=== PATIENT | female | born 1955 | race Caucasian/White ===

== ENCOUNTER 2021-11-26 08:21 | Outpatient (CLI) | payer MEDICARE, SELFPAY ==
--- NOTE | 2021-11-26 15:13 | WPDPFTINT ---
PFT Procedure Performed PFT Procedure Performed Spirometry with Pre/Post Bronchodilator Plethysmography (Lung Vol) Diffusing Cap (DLCO) Flow Vol Loop PFT Interpretation This is a pulmonary function test with pre and post-bronchodilator spirometry, plethysmography and diffusing capacity. The test was performed and results interpreted in accordance with the 2019 and 2005 ATS/ERS Task Force guidelines respectively using the Global Lung Function Initiative-2012 reference equations. Patient demonstrated good effort and cooperation. Reproducibility criteria were met. The quality of the pre bronchodilator spirometry maneuver was Grade A and post bronchodilator spirometry maneuver was Grade A. Findings: Spirometry: There is decreased maximal expiratory airflow at low lung volumes with concave expiratory flow tracing. The pre bronchodilator FVC is 1.80 L, 57% predicted. The pre bronchodilator FEV1 is 1.26 L, 52% predicted. The pre bronchodilator FEV1: FVC ratio 70%. The post bronchodilator FVC is 1.82 L, representing 1% increase. The post bronchodilator FEV1 is 1.40 L, representing an 11% increase. The post bronchodilator FEV1: FVC ratio 77%. Plethysmography: The total lung capacity is 3.90 L, 73% predicted. The functional residual capacity is 2.20 L, 72% predicted. The residual volume is 2.08 L, 92% predicted. Diffusing capacity: The diffusion capacity unadjusted for hemoglobin and carboxyhemoglobin is 14.1, 65% predicted. The diffusing capacity adjusted for alveolar volume is 4.70, 111% predicted. In comparison to previous pulmonary function test on 02/01/2015 the post bronchodilator FVC has decreased from 2.28 L to 1.82 L. The post bronchodilator FEV1 has decreased from 1.80 L to 1.40 L. The total lung capacity is unchanged from 3.88 L to 3.90 L. The functional residual capacity is unchanged from 2.24 L to 2.20 L. The residual volume is increased from 1.64 L to 2.08 L. The diffusing capacity unadjusted for hemoglobin and carboxyhemoglobin is decreased from 17.5 to 14.1. Diffusing capacity adjusted for alveolar volume is unchanged from 4.84 to 4.70. Impression: There is a combined obstructive and restrictive ventilatory abnormality. There are no guidelines to assign the severity of obstruction and restriction with a combined abnormality. In my opinion, given the moderately concave expiratory flow tracing and mildly decreased FEV1: FVC ratio and mild restrictive abnormality I would state there is a moderate obstructive abnormality and a mild restrictive abnormality resulting in a moderately severe decreased in the FEV1. There is no significant improvement after inhaling a single dose of albuterol. The diffusing capacity unadjusted for hemoglobin and carboxyhemoglobin is mildly decreased and normalizes when adjusted for alveolar volume. In comparison to previous pulmonary function test on 02/01/2015 there has been a greater than anticipated time dependent decrease in FVC, FEV1, diffusing capacity unadjusted for hemoglobin and carboxyhemoglobin with a greater than anticipated time dependent increase in the residual volume and no change in the total lung capacity, functional residual capacity or diffusing capacity adjusted for alveolar volume. Clinical correlation is recommended.
--- NOTE | 2021-11-26 15:20 | WPDSIXMINUTE ---
Six Minute Walk Procedure Procedure Performed Pulmonary Stress Test (6 min walk) Six Minute Walk Six Minute Walk: This is a 6 minute walk test. The test was performed and interpreted in accordance with the 2014 ERS/ATS task force guidelines. Findings: The patient's resting room air oxygen saturation measured by pulse oximetry was 94% and heart rate was 94 bpm. Patient ambulated for 244 meters and oxygen saturation remained 91 to 95%. Heart rate at the end of the study was 111 bpm. The patient did not qualify for supplemental oxygen at rest or with ambulation. There are no prior studies for comparison.
== END 2021-11-26 08:22 | disposition home or self-care (01) ==
PROVIDERS: PCP Family Medicine; Visit Provider Nurse Practitioner
DX: J44.9 Chronic obstructive pulmonary disease, unspecified (principal); R94.2 Abnormal results of pulmonary function studies
CPT/HCPCS: 94060; 94618; 94726; 94729

== ENCOUNTER 2023-03-14 17:00 | Emergency (ER) | payer MEDICARE, SELFPAY ==
[2023-03-14 17:11] VITALS: BP 138/73; PULSE 85; RESP 18; TEMP 36.1; O2SAT 100
--- NOTE | 2023-03-14 17:14 | ED.FEMALEGU ---
HPI - Female Genitourinary General Chief complaint: Urogenital-Female Stated complaint: Blood in Urine Time Seen by Provider: 03/14/23 17:14 Source: patient Mode of arrival: ambulatory Limitations: no limitations History of Present Illness HPI Narrative: 67-year-old female presents with complaint of blood in urine since this morning. no urinary frequency, urgency, burning. Denies chills, fatigue, body aches. States she is not having any other symptoms other than the blood in urine. States he had similar symptoms started several years ago and a week later she found that she had a kidney stone. At the time the blood for started she did not have any back pain. All systems reviewed and negative except as noted above. Related Data Home Medications Medication Instructions Recorded Confirmed ezetimibe 10 mg tablet 10 mg PO DAILY 03/14/23 03/14/23 levothyroxine 100 mcg tablet 100 mcg PO DAILY 03/14/23 03/14/23 omeprazole 40 mg capsule,delayed 40 mg PO DAILY 03/14/23 03/14/23 release oxybutynin chloride 10 mg 10 mg PO DAILY 03/14/23 03/14/23 tablet,extended release 24 hr rosuvastatin 5 mg tablet 5 mg PO DAILY 03/14/23 03/14/23 venlafaxine 75 mg capsule,extended 75 mg PO BID 03/14/23 03/14/23 release 24 hr verapamil 240 mg 24 hr 240 mg PO DAILY 03/14/23 03/14/23 capsule,extended release Allergies Allergy/AdvReac Type Severity Reaction Status Date / Time alendronate sodium AdvReac Intermediate Joint Pain Verified 03/14/23 17:23 fluticasone AdvReac Intermediate Joint Pain Verified 03/14/23 17:23 salmeterol AdvReac Intermediate Joint Pain Verified 03/14/23 17:23 diltiazem AdvReac Mild Rash Verified 03/14/23 17:23 Review of Systems Review of Systems: CONSTITUTIONAL: Denies fever, chills, or sweats. EYES: Denies visual changes, redness, or discharge. ENT: Denies rhinorrhea, congestion, sore throat, or otalgia. CARDIOVASCULAR: Denies chest pain, palpitations, or edema. RESPIRATORY: Denies cough or dyspnea. GASTROINTESTINAL: Denies abdominal pain, nausea, vomiting, or diarrhea. GENITOURINARY: Denies dysuria , frequency, urgency. Denies hematuria. SKIN: Denies rash or itching. MUSCULOSKELETAL: Denies back pain, joint pain, or myalgia. NEUROLOGIC: Denies headache, numbness, or weakness. PSYCHIATRIC: Denies anxiety or depression. All other systems reviewed are negative, except as documented in HPI. [facility] Family History Family History (Updated 02/19/18 @ 14:15 by DOCTOR UNKNOWN) Other Carcinoma of colon Diabetes mellitus Family history of atrial fibrillation Family history of cardiovascular disease Hypertension Social History Social History Smoking status: Current every day smoker Alcohol intake: never Comments At time of signature, agree with nursing past medical, surgical, social and family history. There is no relevant family history pertinent to the presenting complaint. Exam Narrative: GENERAL: This is a well-nourished, well-developed patient, in no apparent distress. HEAD: normocephalic, atraumatic. EYES: PERRL. Sclera clear/white. Vision is grossly intact. EARS: External ears normal. NOSE: External nose normal NECK: Neck supple, non-tender without lymphadenopathy, masses or thyromegaly. CARDIOVASCULAR: Regular rate and rhythm without murmurs, gallops, or rubs. RESPIRATORY: Clear to auscultation. Breath sounds equal bilaterally. No wheezes, rales, or rhonchi. SKIN: warm, Dry, intact with no suspicious lesions or rash, good texture and turgor. NEURO: awake, alert, and oriented to person, place and time. There were no obvious focal neurologic abnormalities. EXTREMITIES: No joint tenderness, effusion, or edema noted. Course Course Level of Care: Express Care Visit Vital Signs Vital signs: Vital Signs Temperature 36.1 C L 03/14/23 17:11 Pulse Rate 85 03/14/23 17:11 Respiratory Rate 18 03/14/23 17:11 Blood Pressure 138/73 03/14/23 17:11 Pulse Ox
== END 2023-03-14 18:15 | disposition home or self-care (01) ==
PROVIDERS: Emergency Provider Nurse Practitioner Family; PCP Family Medicine
DX: N39.0 Urinary tract infection, site not specified (principal); R31.9 Hematuria, unspecified; F17.200 Nicotine dependence, unspecified, uncomplicated
CPT/HCPCS: 81003; 87086; 87088; 99213; G0463

== ENCOUNTER 2023-11-24 17:46 | Emergency (ER) | payer MEDICARE, SELFPAY ==
--- NOTE | ~2023-11-24 | XR_ITS ---
EXAMINATION: XR wrist LT min 3V DATE: 11/24/2023 18:26 INDICATION: Left wrist trauma TECHNIQUE: Posteroanterior, ulnar deviation, oblique, and lateral views of the left wrist were obtain ed. COMPARISON: none FINDINGS: Alignment is normal. No fracture. 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 Soft tissue swelling about the wrist most prominent radially. IMPRESSION: 1. 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 No acute osseous abnormality. Reviewed, dictated and finalized at location A. IMPRESSION: 1. 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 No acute osseo us abnormality.
[2023-11-24 18:05] VITALS: BP 154/77; PULSE 87; RESP 18; TEMP 37; O2SAT 98
[2023-11-24] MEDS: ACETAMINOPHEN 500 MG TABLET 1000 MG PO (18:30)
--- NOTE | 2023-11-24 19:04 | ED.EXTPRO ---
HPI - Extremity Problem General Chief complaint: Extremity Problem,Nontraumatic Stated complaint: left wrist pain History of Present Illness HPI Narrative: patient presents with complaints of left wrist swelling, bruising, pain. Approximately 45 minutes prior to arrival she slipped and fell, caught self on outstretched left hand. Immediately began to notice pain and swelling to the left wrist. She is able to move the fingers of the left hand, is able to move the wrist, but with great pain. She did not take anything for her symptoms prior to arrival. She denies other injury and trauma, she voices no other concerns or complaints at this time. Related Data Home Medications Medication Instructions Recorded Confirmed ezetimibe 10 mg tablet 10 mg PO DAILY 03/14/23 11/24/23 levothyroxine 100 mcg tablet 100 mcg PO DAILY 03/14/23 11/24/23 omeprazole 40 mg capsule,delayed 40 mg PO DAILY 03/14/23 11/24/23 release rosuvastatin 5 mg tablet 5 mg PO DAILY 03/14/23 11/24/23 venlafaxine 75 mg capsule,extended 75 mg PO BID 03/14/23 11/24/23 release 24 hr verapamil 240 mg 24 hr 240 mg PO DAILY 03/14/23 11/24/23 capsule,extended release aspirin 81 mg chewable tablet 81 mg PO DAILY 11/24/23 11/24/23 calcium-vitamin D3-vitamin K 500 1 tablet PO DAILY 11/24/23 11/24/23 mg-100 unit-40 mcg chewable tablet loratadine 10 mg tablet (Claritin) 10 mg PO DAILY 11/24/23 11/24/23 [id number] 45 mg-folic 1 cap PO DAILY 11/24/23 11/24/23 acid 800 mcg-vit K 120 mcg capsule (Bariatric Multivitamins) Allergies Allergy/AdvReac Type Severity Reaction Status Date / Time diltiazem Allergy Mild Rash Verified 11/24/23 18:03 alendronate sodium AdvReac Intermediate Joint Pain Verified 11/24/23 18:03 fluticasone AdvReac Intermediate Joint Pain Verified 11/24/23 18:03 salmeterol AdvReac Intermediate Joint Pain Verified 11/24/23 18:03 Review of Systems Review of Systems: All systems reviewed & are unremarkable except as noted in HPI and below Constitutional: Constitutional: Reports no additional constitutional complaints ENT: Reports system reviewed and no additional complaints, except as documented Cardiovascular: Cardiovascular: Reports no additional cardiovascular complaints Respiratory: Respiratory: Reports no additional respiratory complaints Gastrointestinal: Gastrointestinal: Reports no additional gastrointestinal complaints Musculoskeletal: Musculoskeletal: Reports as per HPI [facility] Family History Family History Other Carcinoma of colon Diabetes mellitus Family history of atrial fibrillation Family history of cardiovascular disease Hypertension Social History Social History Smoking status: Current every day smoker Alcohol intake: never Exam Const: General: cooperative, no acute distress, alert and awake Orientation/consciousness: oriented to person, oriented to place and oriented to time HENMT: Head: normal to inspection Resp: Effort & Inspection: normal respiratory effort and able to speak in complete sentences Auscultation: clear to auscultation bilaterally, no crackles, no rales, no rhonchi and no wheezes Cardio: Palpation: normal PMI Rate: regular rate Rhythm: regular rhythm Heart sounds: S1 normal heart sound present and S2 normal heart sound present Neuro: General: oriented to person, oriented to place and oriented to time Cranial nerves: Yes CN's II-XII intact bilaterally Extrem: Left upper extremity: normal capillary refill and wrist tenderness, swelling, abnormal ROM ( Range of motion limited by pain), radial pulse present and ulnar pulse present Psych: Appearance: grossly normal Thought process: Normal thought process present Insight: Good insight present (Psych) Judgement: Good judgement present (Psych) Course Course Level of Care: Express Care Visit Vital Signs Vital sig
== END 2023-11-24 19:19 | disposition home or self-care (01) ==
PROVIDERS: Emergency Provider Nurse Practitioner Family; PCP Family Medicine
DX: S69.92XA Unspecified injury of left wrist, hand and finger(s), initial encounter (principal); W01.0XXA Fall on same level from slipping, tripping and stumbling without subsequent striking against object, initial encounter; F17.200 Nicotine dependence, unspecified, uncomplicated
CPT/HCPCS: 73110; 99213; A4565; A9270; G0463